=== PATIENT | male | born 1940 | race Caucasian/White ===

== ENCOUNTER 2018-01-22 00:42 | Inpatient (IN) | payer OTHER ==
[~2018-01-22] VITALS: Ht 180.3 cm; Wt 78.0 kg
[2018-01-22] VITALS (10 sets, daily range): BP systolic 129–182; BP diastolic 58–88
--- NOTE | ~2018-01-22 | EKG ---
[place] [address] [facility] [place] [address] ELECTROCARDIOGRAM REPORT Name: JEANNIE SUÁREZ Room #: 450-P ADM IN M.R.#: [id number] Admission: 01/22/18 Attend Phys: Bud No MD Discharge: Date of : 40 Report #: [id number] THIS REPORT FOR: //name// [facility] ED Test Date: 2018-01-22 Test Time: 00:47:48 Pat Name: JEANNIE SUÁREZ Department: Room: Gender: M Founder President And Ceo: YOJANA : 1940 Requested By: Michael Lau Order Number: [id number] MD: Nayan Ward Measurements Intervals [place] Rate: 59 P: 13 MN: 153 QRS: -32 QRSD: 95 T: 39 QT: 427 QTc: 423 Interpretive Statements Sinus rhythm Left axis deviation No previous ECG available for comparison Electronically Signed On 01-22-2018 17:05:54 CDT by Nayan Ward [email or web address] <ELECTRONICALLY SIGNED> By: Nayan Ward MD, [facility] 01/22/18 1705 0047 0047 Nayan Ward MD, FACC /EPI
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
--- NOTE | ~2018-01-22 | O ---
[facility] [place] [address] OPERATIVE REPORT Name: JEANNIE SUÁREZ Room #: 450-P [facility] IN M.R.#: [id number] Admission: 01/22/18 Attend Phys: Bud No MD Discharge: Date of : 40 Report #: [id number] THIS REPORT FOR: //name// CC: FAM unknown Bud No DATE OF SERVICE: 01/22/2018 PREOPERATIVE DIAGNOSIS: Right valgus impacted femoral neck fracture. POSTOPERATIVE DIAGNOSIS: Right valgus impacted femoral neck fracture. PROCEDURE: Percutaneous screw fixation, right femoral neck fracture. SURGEON: Montrell Francisco MD BROOM WORKER: Adore Carrizales PA-C INDICATION FOR BROOM WORKER: Throughout the case, extensive retraction and manipulation of the hip was required. This was afforded to me by my social human services assistants. ANESTHESIA: LMA. IMPLANTS: Synthes 7.0 partially threaded cannulated screws, size 100 mm, 95 mm and 90 mm in length. ESTIMATED BLOOD LOSS: 5 mL COMPLICATIONS: None. SPECIMENS: None. CONDITION UPON LEAVING THE OPERATING ROOM: Stable. INDICATIONS FOR PROCEDURE: The patient is a 77-year-old gentleman who fell at his nursing facility and sustained a valgus impacted right femoral neck fracture. After discussion with him and family, they elected for treatment with percutaneous screws. DESCRIPTION OF PROCEDURE: Risks, benefits, alternatives, complications were discussed in detail with the patient including, but not limited to risk of anesthesia, risk of damage to nerves, arteries, blood vessels, risk for infection, bleeding, risk for malunion, nonunion, need for reoperation. Informed consent was obtained from the patient. The right hip was appropriately marked in the preoperative holding area. IV Ancef was given for preoperative antibiotics. He was brought to the operating room and LMA anesthesia was [facility] [address] [place] [address] OPERATIVE REPORT Name: JEANNIE SUÁREZ Room #: 450-P ADM IN M.R.#: [id number] Admission: 01/22/18 Attend Phys: Bud No MD Discharge: Date of : 40 Report #: [id number] induced. He was transferred to the [place] table and right lower extremity was placed in traction, left lower extremity was scissored. Timeout was performed properly identifying the patient and procedure as well as the instrumentation and implants. All in the operating room were in agreement. Fluoroscopic imaging was brought in to verify adequate reduction of fracture and adequate images. The right hip was then prepped and draped in normal sterile fashion. A 2 cm incision over the lateral femur was made with 10 blade through the skin and fascia. Threaded tip guidewire was then placed for the posterior inferior screw. This was taken up into the femoral head under AP and lateral imaging. The Mariana gun guide was then used to place the superior anterior and superior posterior threaded guidewires. These were measured and found to be 100 for the most distal screw, 95 for the posterior superior screw and 90 for the anterior superior screw. The lateral cortex was drilled, the 3 screws were placed and tightened. Final fluoroscopic images were taken to verify adequate fracture reduction and placement of hardware. Wound was thoroughly irrigated with normal saline and closed with 2-0 Vicryl and skin yohana. Soft dressing of Adaptic, 4 x 4s, ABD, Medipore tape were applied. The patient tolerated this procedure well and went to recovery room under care of anesthesia postoperatively. By: [id number] Montrell Francisco MD /nt
[~2018-01-22 00:42] MED LIST: ASPIR 8181 MG PO; COLACE100 MG PO; FLOMAX0.4 MG PO; LASIX 20 MG TAB20 MG PO; LEVSIN0.125 MG PO; LIPITOR 20 MG T20 M1 PO; LISINOPRIL20 MG PO; LOPRESSOR50 PO; METFORMIN HCL500 MG PO; MIRALAX17 GM PO; NAMENDA XR28 MG PO; NYAMYC15 GM TOP; OXYCODONE HCL 55 MG PO; SENNA8.6 MG PO; TYLENOL EXTRA500 MG PO; VENTOLIN HFA 1818 GM INH; VITAMIN D3 COM1 EACH PO
[2018-01-22 01:16] LABS: URINE BILIRUBIN NEGATIVE (Negative); URINE BLOOD NEGATIVE (Negative); URINE CLARITY CLEAR; URINE COLOR YELLOW; URINE GLUCOSE-RANDOM* NEGATIVE (Negative); URINE KETONES NEGATIVE (Negative); URINE PROTEIN (DIPSTICK) NEGATIVE (Negative); URINE SPECIFIC GRAVITY 1.015 (1.005-1.035); URINE UROBILINOGEN 0.2 E.U./dl (0.2-1.0)
[2018-01-22 01:20] LABS: ABSOLUTE NEUTROPHILS 5.2 thou/uL (1.4-8.2); BASOPHILS 1.1 % (0.0-2.0); EOSINOPHILS 2.5 % (0.0-3.0); HEMATOCRIT 30.1 % (42.0-52.0); HEMOGLOBIN 10.2 gm/dL (14.0-18.0); LYMPHOCYTES 26.3 % (24.0-44.0); MCHC 33.8 g/dL (28.0-37.0); MCV 88.7 fL (80.0-100.0); PLATELET COUNT 214 thou/uL (150-400); POLYS 60.1 % (36.0-66.0); WBC 8.6 thou/uL (4.0-11.0)
[2018-01-22 01:23] LABS: URINE LEUKOCYTES-REFLEX 1+ (Negative); URINE NITRITE-REFLEX POSITIVE (Negative)
[2018-01-22 01:27] LABS: BACTERIA-REFLEX 1-9 Few /HPF (None Seen); CASTS None Seen /LPF (None Seen); CRYSTALS None Seen /LPF (None Seen); SQUAMOUS 0-3 Few /LPF (0-3); URINE RBC 0-2 Rare /HPF (0-2); URINE WBC-REFLEX 0-5 Rare /HPF (0-5)
[2018-01-22 01:29] LABS: CALCIUM 8.5 mg/dL (8.5-10.1); CREATININE 1.1 mg/dL (0.7-1.3)
[2018-01-22 01:35] LABS: TOTAL BILIRUBIN 0.2 mg/dL (<0.1-1.0); TOTAL PROTEIN 7.4 g/dL (6.4-8.2)
[2018-01-22 01:42] LABS: APTT 24.7 Seconds (24.5-32.8); INR 1.2; PROTIME 12.5 Seconds (9.3-11.4)
[2018-01-22] MEDS ORDERED: AMLODIPINE BESY10 MG PO (02:09)
[2018-01-22] MEDS ORDERED: VITAMIN E400 UNIT PO (02:11)
[2018-01-22] MEDS ORDERED: VITAMIN D3400 UNIT PO (02:12)
[2018-01-23 03:30] VITALS: BP 130/74
[2018-01-23 04:28] LABS: ALBUMIN 2.4 g/dL (3.4-5.0); CALCIUM 8.1 mg/dL (8.5-10.1); PHOSPHORUS 3.5 mg/dL (2.5-4.9); POTASSIUM 3.9 mmol/L (3.5-5.1)
[2018-01-23 05:26] LABS: HEMATOCRIT 27.4 % (42.0-52.0); HEMOGLOBIN 9.2 gm/dL (14.0-18.0); MCH 29.9 pg (26.0-34.0); MCHC 33.6 g/dL (28.0-37.0); MCV 89.2 fL (80.0-100.0); RBC 3.08 mil/uL (4.50-6.00); RDW 16.2 % (10.5-14.5); WBC 7.4 thou/uL (4.0-11.0)
[2018-01-23 07:55] VITALS: BP 146/68
[2018-01-23 16:16] VITALS: BP 136/47
[2018-01-23 19:39] VITALS: BP 139/60
[2018-01-24 04:10] VITALS: BP 122/61
[2018-01-24 05:53] LABS: HEMATOCRIT 26.5 % (42.0-52.0); MCH 29.9 pg (26.0-34.0); MCV 88.1 fL (80.0-100.0); RBC 3.01 mil/uL (4.50-6.00); RDW 16.7 % (10.5-14.5); WBC 7.3 thou/uL (4.0-11.0)
[2018-01-24 08:00] VITALS: BP 140/67
[2018-01-24 16:00] VITALS: BP 132/50
[2018-01-24 19:05] VITALS: BP 118/64
[2018-01-25 04:13] VITALS: BP 107/52
[2018-01-25 08:27] VITALS: BP 126/40
[2018-01-25] MEDS ORDERED: CEFUROXIME250 MG PO (09:45)
[2018-01-25] MEDS ORDERED: ENOXAPARIN40 MG/0.1 SUBQ (09:46)
[2018-01-25] MEDS ORDERED: HYDROCODON-ACE1 EAC7 PO (09:46)
[2018-01-25] MEDS ORDERED: NOVOLOG100 UNIT/1 SUBQ (09:46)
[2018-01-25 16:04] VITALS: BP 138/53
== END 2018-01-25 17:03 | DRG 481 ==
LOC: ER 00:42 → EROBS 01:42 → 4W 01:42
PROVIDERS: Emergency Medicine; Hospitalist
PROC: 0QH634Z Insertion of Internal Fixation Device into Right Upper Femur, Percutaneous Approach (ICD-10-PCS; principal; 2018-01-22)
DX: S72.001A Fracture of unspecified part of neck of right femur, initial encounter for closed fracture (principal); T83.511A Infection and inflammatory reaction due to indwelling urethral catheter, initial encounter; N39.0 Urinary tract infection, site not specified; E11.9 Type 2 diabetes mellitus without complications; I10 Essential (primary) hypertension; G89.29 Other chronic pain; F03.90 Unspecified dementia, unspecified severity, without behavioral disturbance, psychotic disturbance, mood disturbance, and anxiety; E78.5 Hyperlipidemia, unspecified; I35.0 Nonrheumatic aortic (valve) stenosis; Z87.891 Personal history of nicotine dependence; W18.39XA Other fall on same level, initial encounter; Y93.89 Activity, other specified; Y92.89 Other specified places as the place of occurrence of the external cause; Y99.8 Other external cause status
CPT/HCPCS: 10040; 50010; 50386; 51412; 51538; 53400; 56524; 57092

== ENCOUNTER 2019-05-09 09:43 | Inpatient (IN) | payer OTHER ==
[2019-05-09] VITALS (36 sets, daily range): BP systolic 76–147; BP diastolic 42–78
[~2019-05-09] VITALS: Ht 172 cm; Wt 78.3 kg
[~2019-05-09 09:43] MED LIST changes: +AMLODIPINE BESY10 MG PO; +CEFUROXIME250 MG PO; +ENOXAPARIN40 MG/0.1 SUBQ; +HYDROCODON-ACE1 EAC7 PO; +NOVOLOG100 UNIT/1 SUBQ; +VITAMIN D3400 UNIT PO; +VITAMIN E400 UNIT PO
[2019-05-09 10:06] LABS: HEMATOCRIT 30.6 % (42.0-52.0); HEMOGLOBIN 9.9 gm/dL (14.0-18.0); MCH 30.8 pg (26.0-34.0); MCHC 32.3 g/dL (28.0-37.0); MCV 95.4 fL (80.0-100.0); RBC 3.2 mil/uL (4.50-6.00); RDW 16.1 % (10.5-14.5); WBC 10.3 thou/uL (4.0-11.0)
[2019-05-09 10:29] LABS: ANION GAP 12 mmol/L (7-16); BUN 32 mg/dL (7-18); CHLORIDE 106 mmol/L (98-107); CO2 23 mmol/L (21-32); CREATININE 1.1 mg/dL (0.7-1.3); GLUCOSE 249 mg/dL (74-106); SODIUM 141 mmol/L (136-145)
[2019-05-09 10:32] LABS: POTASSIUM 3.8 mmol/L (3.5-5.1)
[2019-05-09 10:38] LABS: TROPONIN-I <0.06 ng/mL (<0.06)
[2019-05-09] MEDS ORDERED: PRINIVIL10 MG PO (11:06)
[2019-05-09] MEDS ORDERED: COMBIVENT INH (11:09)
[2019-05-09] MEDS ORDERED: PROVERA5 MG PO (11:10)
[2019-05-09] MEDS ORDERED: TRANSDERM-SCOP1 EACH TRANSDERM (11:14)
[2019-05-09] MEDS ORDERED: NOVOLOG100 UNIT/M SUBQ (11:16)
[2019-05-09 12:00] LABS: BE(vivo) -6.8 mmol/L (-2 to +3); HCO3 20.1 mmol/L (22.0-26.0); PCO2 46.7 mmHg (35.0-45.0); PO2 365.8 mmHg (80.0-100.0); sO2 99.7 % (92.0-98.0)
[2019-05-09 12:01] LABS: pH 7.251 (7.360-7.450)
[2019-05-09 12:06] LABS: URINE BILIRUBIN NEGATIVE (Negative); URINE BLOOD 2+ (Negative); URINE CLARITY CLEAR; URINE COLOR YELLOW; URINE GLUCOSE-RANDOM* NEGATIVE (Negative); URINE KETONES NEGATIVE (Negative); URINE PROTEIN (DIPSTICK) 2+ (Negative)
[2019-05-09 12:07] LABS: URINE LEUKOCYTES-REFLEX 3+ (Negative); URINE NITRITE-REFLEX POSITIVE (Negative)
[2019-05-09 12:18] LABS: BACTERIA-REFLEX >30 Many /HPF (None Seen); CASTS None Seen /LPF (None Seen); CRYSTALS None Seen /LPF (None Seen); SQUAMOUS 0-3 Few /LPF (0-3); URINE RBC 3-10 Few /HPF (0-2); URINE WBC-REFLEX >25 Many /HPF (0-5); WBC CLUMPS Few (None Seen)
[2019-05-09 12:21] LABS: APTT 28.9 Seconds (24.5-32.8); FIBRINOGEN 559.9 mg/dL (210-360); INR 1.7; PROTIME 17.4 Seconds (9.3-11.4)
--- NOTE | 2019-05-09 16:28 | EKG ---
[address] [address] ELECTROCARDIOGRAM REPORT Name: JEANNIE SUÁREZ Room #: 241-P ADM IN M.R.#: [id number] Admission: 05/09/19 Attend Phys: David Wyman MD Discharge: Date of : 40 Report #: [id number] THIS REPORT FOR: //name// [facility] ED Test Date: 2019-05-09 Test Time: 09:50:11 Pat Name: JEANNIE SUÁREZ Department: Room: 241 Gender: M Product Controller: ZARIA : 1940 Requested By: José Miguel Olivarez Order Number: [id number] MD: Leon Polanco Measurements Intervals [place] Rate: 103 P: 65 FL: 139 QRS: -10 QRSD: 97 T: 74 QT: 380 QTc: 498 Interpretive Statements Sinus tachycardia Atrial premature complex Borderline prolonged QT interval Compared to ECG 01/22/2018 00:47:48 Electronically Signed On 05-09-2019 16:27:56 CDT by Leon Polanco [email or web address] <ELECTRONICALLY SIGNED> By: Leon Polanco MD 05/09/19 1627 9 9 Leon Polanco MD /ADRIANNE
--- NOTE | 2019-05-09 17:14 | NUR ---
CM ASSESSMENT: CASE OPENED FOR DC PLANNING. CLINICAL INFO REVIEWED. PT ADMITTED THRU ER FORM [facility]. ASPIRATED AT BREAKFAST, REQUIRING CPR AT FACILITY. INTUBATED AND ON VENT. SEPSIS PROTOCOL AND ON LEVOPHED GTT. PT HAS FIELD [facility] PUBLIC CONDUCTOR/BRAKEMAN GUARDIAN, TATIROBERT RODRIGUES [phone] AND AFTER HOURS AT [phone]. SPOKE WITH MS RODRIGUES AND PROVIDED CLINCIAL UPDATE. SHE GIVE HER CONSENT TO TREAT AND REQUESTS CALL ANY TIME NIGHT OR DAY WITH SIGNIFICANT CHANGE OF CONDITION AND FOR CONSENT FOR ANY PROCEDURES. RN UPDATED. DC PLAN TO RETURN TO [facility] WHEN MEDICALLY STABLE. WILL HAVE DC TOP TILE DECORATOR FAX CLINICAL UPDATE TO [facility] IN AM. VALENCIA GUARDIAN GIVES CONSENT FOR PT'S SISTER ISABELLE MILLER TO CALL TO GET INFO ON PT.
--- NOTE | 2019-05-09 17:46 | NUR ---
CONSULTED TO PLACE A CENTRAL LINE FOR A PATIENT ADMITTING WITH ASPIRATION PNEUMONIA, HYPOTENSIVE. NO FAMILY AND LINE IS EMERGENT. MEDICAL NECESSITY SIGNED BY THE ER MD. ORDER NOTED. THE RIGHT JUGULAR VEIN WAS WIDLEY PATENT. A #6F TRIPLE LUMEN CENTRAL LINE WAS PLACED AFTER A BEDSIDE TIMEOUT. LINE PLACED PER HOSPITAL POLICY. LINE LENGTH 25CM AND ADVANCED TO 6CM EXTERNAL. A STAT CHEST XRAY WAS COMPLETED TO CONFIRM LINE IN CORRECT POSITION IN THE SVC. SANDRA NOTIFIED AND LINE RELEASED FOR USE
--- NOTE | 2019-05-09 19:16 | NUR ---
RECIEVED PATIENT FROM ER TO ROOM 241. INTUBATED AND ON LEVOPHED DRIP. OPENS EYES TO VOICE BUT DOES NOT FOLLOW COMMANDS. LIVES IN JAIL AND HAS A GUARDIAN. NO FAMILY AVAILABLE AT THIS TIME. CONTINUE LEVOPHED DRIP FOR BP AND PROPOFOL FOR SEDATION. FLUIDS INFUSING AT 150/HOUR.
[2019-05-09 19:56] LABS: BE(vivo) -6.4 mmol/L (-2 to +3); HCO3 19.6 mmol/L (22.0-26.0); PCO2 40.6 mmHg (35.0-45.0); PO2 87.7 mmHg (80.0-100.0); sO2 95.8 % (92.0-98.0)
[2019-05-09 19:57] LABS: pH 7.301 (7.360-7.450)
[2019-05-10] VITALS (67 sets, daily range): BP systolic 92–131; BP diastolic 48–78
[2019-05-10 04:38] LABS: ALBUMIN 1.7 g/dL (3.4-5.0); CALCIUM 8.2 mg/dL (8.5-10.1); CREATININE 0.9 mg/dL (0.7-1.3); POTASSIUM 4.2 mmol/L (3.5-5.1); TOTAL BILIRUBIN 0.4 mg/dL (<0.1-1.0)
[2019-05-10 05:13] LABS: HEMATOCRIT 26.2 % (42.0-52.0); HEMOGLOBIN 8.4 gm/dL (14.0-18.0); MCH 30.8 pg (26.0-34.0); MCHC 32.2 g/dL (28.0-37.0); MCV 95.5 fL (80.0-100.0); PLATELET COUNT 234 thou/uL (150-400); RBC 2.74 mil/uL (4.50-6.00); WBC 9.5 thou/uL (4.0-11.0)
[2019-05-10 05:34] LABS: BE(vivo) -6.4 mmol/L (-2 to +3); HCO3 19.5 mmol/L (22.0-26.0); PCO2 40.5 mmHg (35.0-45.0); PO2 122.9 mmHg (80.0-100.0); sO2 98.1 % (92.0-98.0)
[2019-05-10 05:35] LABS: pH 7.301 (7.360-7.450)
[2019-05-10 08:44] LABS: METAMYELOCYTES 9 %; MYELOCYTES 1 %; PLATELET ESTIMATE NORMAL
--- NOTE | 2019-05-10 10:20 | NUR ---
If extended npo status and enteral nutrition to start, recommend glucerna 1.2 at 30ml/hr and will evaluate final goal at follow up visit
--- NOTE | 2019-05-10 15:33 | NUR ---
ASSUMED CARE THIS AM. PATIENT INTUBATED AND SEDATED. LEVOPHED AT 6 MCG/MIN, PROPOFOL AT 25 MCG/KG/MIN, INSULIN DRIP AT 4 UNITS/HR. ACCUCHECKS EVERY HOUR. OPENS EYES BUT DOES NOT FOLLOW COMMANDS. SR WITH SHORT RUNS OF SVT, RATE 150'S - 170'S. DR. VILLEGAS NOTIFIED AND WANTS TO BE CALLED IF HE SUSTAINS. CHANGED ALBUTEROL TO XOPENEX WITH NO CHANGES . DR. BURKS NOTIFIED AND WILL GIVE ORDERS IF NEEDED. INSULIN DRIP ON HOLD FOR BS OF 53. ONE AMP D50 GIVEN.
--- NOTE | 2019-05-10 20:09 | HC ---
[facility] [place] [address] CONSULTATION Name: JEANNIE SUÁREZ Room #: 241-P ADM IN M.R.#: [id number] Admission: 05/09/19 Attend Phys: David Wyman MD Discharge: Date of : 40 Report #: [id number] THIS REPORT FOR: //name// CC: Srinivasa Wyman DATE OF SERVICE: 05/09/2019 INFECTIOUS DISEASE CONSULTATION REASON FOR CONSULTATION: Evaluation concerning septic shock. HISTORY OF PRESENT ILLNESS: The patient is a 78-year-old longterm resident, was eating breakfast when he choked on his oatmeal. Developed respiratory distress, required CPR. EMS suction oatmeal out of his airway. He was brought in emergently to [facility], now in the Intensive Care Unit. He received IV fluid resuscitation and is now on Levophed drip. Blood pressure dropped down into the 60s systolic. He has been tachycardic. He has maintained reasonable urine output. He is on a 50% FiO2, orally intubated. He is unresponsive and unable to give any further details. He does have diabetes and underlying dementia with confusion as his baseline. No witnessed falls. There was some report from the nursing staff that maybe he was not feeling well prior to this morning. This has not been confirmed. He has had temperature up to 99 degrees. He has had no rashes reported. There has been no diarrhea. He has had no further emesis noted. REVIEW OF SYSTEMS: Further review of systems is unable to be performed. He does have a right IJ catheter in place and is chronic suprapubic catheter. PAST MEDICAL HISTORY: Left femur fracture, status post ORIF, diabetes, hypertension, urinary retention with suprapubic catheter, aortic valve stenosis, dementia, hyperlipidemia, neck surgery and right hip pinning. ALLERGIES: None known. MEDICATIONS: Included aspirin, Lasix, Namenda, Colace, Glucophage, Ventolin inhaler, Lipitor, Flomax, Tylenol, Levsin, amlodipine, vitamin D, lisinopril, Combivent, Provera, scopolamine patch and insulin. FAMILY HISTORY: Noncontributory. SOCIAL HISTORY: Nonsmoker, no significant alcohol intake. PHYSICAL EXAMINATION: VITAL SIGNS: Temperature was 37.3, heart rate 91, blood pressure 108/62, on Levophed drip. He is on a 50% FiO2, orally intubated with a right IJ catheter [facility] [address] [place] [address] CONSULTATION Name: JEANNIE SUÁREZ Room #: 241-P [facility].#: [id number] Admission: 05/09/19 Attend Phys: David Wyman MD Discharge: Date of : 40 Report #: [id number] SKIN: Without decubitus or rash. No palpable adenopathy. HEENT: Eyes without scleral icterus. Mouth was edentulous. NECK: Supple. LUNGS: Coarse breath sounds throughout. HEART: Regular with a 2/6 systolic murmur heard at left sternal border. ABDOMEN: Soft, nontender. It did not appear tender. There are no appreciable masses or hepatosplenomegaly. Suprapubic catheter site was unremarkable with no drainage or erythema. GENITOURINARY: External genitalia without lesion. RECTAL: Not performed. EXTREMITIES: Without clubbing, cyanosis or edema. He was able to move all extremities. NEUROLOGIC: The patient was sedated and was unable to follow commands. Mood was depressed and sedate. LABORATORY STUDIES: Chest x-ray showed bilateral infiltrates. Urinalysis, pyuria and bacteriuria were present. Sodium 141, potassium 3.8, bicarbonate 23, creatinine 1.1. Hemoglobin 9.9, white count was 10, platelet count 267,000. Blood, urine and sputum cultures are pending. ABG on 50% FiO2 showed a pO2 of 87, pCO2 of 40, pH 7.3 with a lactate of 1.9. Procalcitonin of 12. IMPRESSION: 1. A 78-year-old longterm resident with aspiration pneumonia, respiratory failure and shock. 2. Catheter related urinary tract infection. 3. Septic shock due to #1 and #2. 4. Underlying dementia. 5. Diabetes. 6. Hypertension. 7. Aortic valve stenosis. 8. Urinary retention. RECOMMENDATIONS: We will continue broad antibiotic coverage for healthcare-associated infection, both from the lungs and from the urinary tract. Given that he is edentulous mouth, anaerobes will not be of concern. I do not get the sense that we are dealing with an intraabdominal infection other than the urinary tract. At this point, we will plan on continuing broad antibiotic coverage while awaiting culture results. [address] [address] CONSULTATION Name: JEANNIE SUÁREZ Room #: 241-P ADM IN M.Trell.#: [id number] Admission: 05/09/19 Attend Phys: David Wyman MD Discharge: Date of : 40 Report #: [id number] Continue fluid resuscitation and wean his vasopressors as tolerated. Serial chest x-ray and laboratory studies. Monitor vancomycin level. <ELECTRONICALLY SIGNED> By: Michael Martinez MD 05/10/192008 2216 1043 Michael Martinez MD /nt
[2019-05-11] VITALS (41 sets, daily range): BP systolic 93–130; BP diastolic 40–83
[2019-05-11 06:27] LABS: HEMATOCRIT 24.1 % (42.0-52.0); HEMOGLOBIN 7.8 gm/dL (14.0-18.0); MCH 30.9 pg (26.0-34.0); MCHC 32.4 g/dL (28.0-37.0); MCV 95.4 fL (80.0-100.0); PLATELET COUNT 206 thou/uL (150-400); RBC 2.52 mil/uL (4.50-6.00); RDW 15.9 % (10.5-14.5); WBC 8.6 thou/uL (4.0-11.0)
--- NOTE | 2019-05-11 07:00 | NUR ---
Pt rested comfortably through the night with VS stable and adequate SpO2 on current vent settings. PRN fentanyl given for breakthrough restlessness and grimacing with desired effect achieved. Urine output marginal for shift and no BM observed. Am lab results pending, continue with POC.
[2019-05-11 08:38] LABS: ABSOLUTE NEUTROPHILS 6.9 thou/uL (1.4-8.2)
[2019-05-11 12:43] LABS: ALBUMIN 1.6 g/dL (3.4-5.0); CALCIUM 8.8 mg/dL (8.5-10.1); CREATININE 0.6 mg/dL (0.7-1.3); POTASSIUM 4.2 mmol/L (3.5-5.1); TOTAL BILIRUBIN 0.4 mg/dL (<0.1-1.0); TOTAL PROTEIN 5.6 g/dL (6.4-8.2)
[2019-05-11 12:43] LABS: % SATURATION 23 % (20-39); IRON 22 ug/dL (65-175); TIBC 95 ug/dL (250-450)
[2019-05-11 13:10] LABS: FOLIC ACID 5.3 ng/mL (8.6-58.9)
--- NOTE | 2019-05-11 20:00 | NUR ---
PATIENT RESTING ON VENT TODAY, SEDATION VACATION FOR 50 MINUTES THIS EVENING, GRIMCING WHEN SUCTION, WILL NOT FOLLOW COMMANDS, WITHDRAWS TO PAINFUL STIMULI. ORAL/GASTRIC TUBE INSERTED, KUB DONE, RESULTS NOTED. LEVOPHED TAPPERED OFF MEAN ARTERIAL PRESSURE GREATER THAN 60 MMHG. PATIENT UPDATED TO THE PLAN OF CARE AND REASSURANCE GIVEN.
[2019-05-12] VITALS (29 sets, daily range): BP systolic 100–158; BP diastolic 49–82
--- NOTE | 2019-05-12 06:00 | NUR ---
REMAINS INTUBATED AND SEDATED WITH PROPOFOL GTT. FOLLOWS NO COMMANDS. BATHED. GOOD URINARY OUTPUT. SINUS RHYTHM. WILL CONT TO MONITOR.
[2019-05-12 06:18] LABS: HEMATOCRIT 24.6 % (42.0-52.0); HEMOGLOBIN 7.9 gm/dL (14.0-18.0); MCH 30.6 pg (26.0-34.0); MCHC 32.2 g/dL (28.0-37.0); MCV 94.9 fL (80.0-100.0); RBC 2.6 mil/uL (4.50-6.00); WBC 7.7 thou/uL (4.0-11.0)
[2019-05-12 06:22] LABS: CALCIUM 8.6 mg/dL (8.5-10.1); CREATININE 0.6 mg/dL (0.7-1.3); POTASSIUM 4.2 mmol/L (3.5-5.1)
[2019-05-13] VITALS (15 sets, daily range): BP systolic 123–149; BP diastolic 54–81
--- NOTE | 2019-05-13 06:00 | NUR ---
REMAINS INTUBATED AND SEDATED. PERIODS RESLESSNESS. FOLLOWS NO COMMANDS. 1000 CC UO THIS SHIFT. LUNGS REMAIN COARSE. SUCTIONED FOR A LARGE AMT THICK BEIGE SPUTUM. BATHED WILL CONT TO MONITOR CLOSELY.
[2019-05-13 06:47] LABS: HEMATOCRIT 24.1 % (42.0-52.0); HEMOGLOBIN 7.8 gm/dL (14.0-18.0); MCH 30.5 pg (26.0-34.0); MCHC 32.3 g/dL (28.0-37.0); MCV 94.4 fL (80.0-100.0); RBC 2.55 mil/uL (4.50-6.00); RDW 15.8 % (10.5-14.5); WBC 7.2 thou/uL (4.0-11.0)
[2019-05-13 07:09] LABS: CALCIUM 8.4 mg/dL (8.5-10.1); CREATININE 0.5 mg/dL (0.7-1.3); MAGNESIUM 1.9 mg/dL (1.8-2.4); POTASSIUM 3.8 mmol/L (3.5-5.1)
--- NOTE | 2019-05-13 08:05 | NUR ---
PT SUDDENLY WENT INTO SVT RATE 140 DR TOMAS NOTIFIED. LEFT ORDERS FOR LOPRESSOR 5 MG IV NOW KCL AND MG IV ALSD ORDERED WILL CONT TO MONITOR.
[2019-05-13 08:24] LABS: BE(vivo) -3.9 mmol/L (-2 to +3); HCO3 20.3 mmol/L (22.0-26.0); PCO2 33.7 mmHg (35.0-45.0); PO2 112.3 mmHg (80.0-100.0); pH 7.398 (7.360-7.450); sO2 98.1 % (92.0-98.0)
--- NOTE | 2019-05-13 13:46 | NUR ---
FAXED CLINICAL UPDATE TO [facility] RECEIVED CONFIRMATION AND SPOKE WITH ORIANA IN ADM. DP TO FOLLOW.
--- NOTE | 2019-05-13 14:27 | NUR ---
FOLLOWING FOR DC PLANNING. CLINICAL INFO REVIEWED. PT REMAINS ON VENT AND LOW DSOE PROPOFOL SEDATION, NOT FOLLOWING COMMANDS WHEN SEDATION LIGHTENED. UPDATE TO PA GUARDIAN OFFICE AND DC PLUG DRILL OPERATOR FAXED CLINICAL UPDATE TO [facility] ADMISSIONS.
--- NOTE | 2019-05-13 19:52 | NUR ---
PATIENT REMAINS UNRESPONSIVE ON THE VENT WITH SEDATION FOR COMFORT. PATIENT DOES OPEN HIS EYES AND TRACKS BUT DOES NOT FOLLOW ANY COMMANDS. BRAXTON HAD RUNS OF SVT THIS AM AND WAS STARTED ON METOPROLOL AND K+ AND MAG WAS REPLACED. NO ISSUES SINCE THEN. TUBE FEEDING STARTED ON THIS PATIENT AND HE IS TOLERATING IT WELL. NO FURHTER ISSUES AT THIS TIME. WILL CONTINUE TO MONITOR AND CARE PER PLAN OF CARE.
[2019-05-14] VITALS (23 sets, daily range): BP systolic 107–139; BP diastolic 47–66
[2019-05-14 04:52] LABS: CALCIUM 8.4 mg/dL (8.5-10.1); CREATININE 0.6 mg/dL (0.7-1.3)
[2019-05-14 05:37] LABS: HEMATOCRIT 24.3 % (42.0-52.0); HEMOGLOBIN 7.8 gm/dL (14.0-18.0); MCH 30.2 pg (26.0-34.0); MCHC 32.2 g/dL (28.0-37.0); MCV 93.8 fL (80.0-100.0); RBC 2.59 mil/uL (4.50-6.00); RDW 15.7 % (10.5-14.5); WBC 7.5 thou/uL (4.0-11.0)
[2019-05-14 12:00] LABS: BE(vivo) -2.9 mmol/L (-2 to +3); HCO3 20.3 mmol/L (22.0-26.0); PCO2 28.7 mmHg (35.0-45.0); PO2 115.2 mmHg (80.0-100.0); pH 7.467 (7.360-7.450); sO2 98.5 % (92.0-98.0)
--- NOTE | 2019-05-14 18:45 | NUR ---
patient remains on vent. cpap trial started at 1020 this am. Patient remains on cpap. Will open eyes, but not follow commands. vital signs stable. BM today. Tube feeding at goal rate, tolerating well. PPN discontinued. accuchecks, blood sugars not requiring insulin today. continue to follow plan of care.
[2019-05-15] VITALS (20 sets, daily range): BP systolic 102–141; BP diastolic 44–72
--- NOTE | 2019-05-15 04:21 | NUR ---
PATIENT COMPLETED CPAP TRIAL FROM 10AM-8PM, TOLERATED WELL. ON LIGHT SEDATION ABLE TO MOVE EXTREMITIES BUT UNABLE TO FOLLOW COMMANDS. BILATERAL HAND EDEMA DECREASED THROUGHOUT THE SHIFT. PATIENT TOLERATING TUBE FEEDING AT GOAL RATE 60ML/HR. NO SIGNS OF ACUTE DISTRESS NOTED AT THIS TIME. WILL CONTINUE TO MONITOR.
[2019-05-15 04:36] LABS: CALCIUM 8.8 mg/dL (8.5-10.1); CREATININE 0.6 mg/dL (0.7-1.3); POTASSIUM 4.4 mmol/L (3.5-5.1)
[2019-05-15 04:50] LABS: ABSOLUTE NEUTROPHILS 6.1 thou/uL (1.4-8.2); BASOPHILS 0.3 % (0.0-2.0); EOSINOPHILS 3.1 % (0.0-3.0); HEMATOCRIT 25.7 % (42.0-52.0); HEMOGLOBIN 8.3 gm/dL (14.0-18.0); MCH 30.1 pg (26.0-34.0); MCHC 32.4 g/dL (28.0-37.0); MCV 93.1 fL (80.0-100.0); PLATELET COUNT 225 thou/uL (150-400); POLYS 63.6 % (36.0-66.0); RBC 2.76 mil/uL (4.50-6.00); RDW 15.7 % (10.5-14.5); WBC 9.6 thou/uL (4.0-11.0)
--- NOTE | 2019-05-15 08:48 | NUR ---
UPON ASSESSEMENT, OGT FOUND TO BE TAPED AT 40CM, NOT ABLE TO HEAR ANY AIR WHEN AUSCULTATED. TUBEFEEDING KEPT ON HOLD FOR NOW DR. VILLEGAS ON THE UNIT NOTIFIED.
--- NOTE | 2019-05-15 13:26 | NUR ---
OGT ADVANCE BACK TO 60 AND KUB OBTAINED.
[2019-05-16] VITALS (23 sets, daily range): BP systolic 94–174; BP diastolic 46–79
--- NOTE | 2019-05-16 04:14 | NUR ---
ASSUMED CARE OF PATIENT AT 1900. VSS, AFEBRILE. OPENS EYES, DOES NOT FOLLOW COMMANDS ON SEDATION VACATION. TURNED Q2, BATH GIVEN. NO S/S OF DISTRESS. TOLERATING TUBE FEEDING. NO OTHER CONCERNS AT THIS TIME.
--- NOTE | 2019-05-16 10:21 | NUR ---
PATIENT ON CPAP TRIAL AT THIS TIME, TUBEFEEDING ON HOLD. PATIENT AWAKE AND ALERT BUT DOESN'T FOLLOW COMMANDS.
[2019-05-16 12:34] LABS: BE(vivo) 1.8 mmol/L (-2 to +3); HCO3 25.6 mmol/L (22.0-26.0); PCO2 36.5 mmHg (35.0-45.0); PO2 92.4 mmHg (80.0-100.0); pH 7.463 (7.360-7.450); sO2 97.5 % (92.0-98.0)
--- NOTE | 2019-05-16 12:59 | NUR ---
ABG RESULTS CALLED TO DR. VILLEGAS AND ORDERS RECEIVED TO EXTUBATE PATIENT. RT NOTIFIED.
--- NOTE | 2019-05-16 14:16 | NUR ---
FOLLOWING FOR DC PLANNING. CLINICAL INFO REVIEWED. DISCUSSED WITH DR. VILLEGAS THIS AM. DR. VILLEGAS INDICATES HE SPOKE WITH PT'S GUARDIAN JOANNE RODRIGUES ABOUT CONDITION AND GOALS OF CARE. CODE STATUS CHANGED TO DNR. PT MET CRITERIA FOR EXTUBATION TODAY AND CURRENTLY ON FACE SHIELD O2 WITH SATS IN HIGH 90'S. EYES OPEN BUT NOT FOLLOWING COMMANDS OR MOVING PURPOSEFULLY. RECEIVED VM FROM JERMAINE GASTELUM AT [facility] AND RETURNED CALL-LEFT VM WITH CM CONTACT AND REQUESTED DC CARBON FURNACE OPERATOR FAX UPDATED PULM PROGRESS NOTE TO ORIANA.
--- NOTE | 2019-05-16 14:32 | NUR ---
FAXED CLINICAL UPDATE TODAY'S PROG. NOTES FROM PULMONARY SPOKE WITH ORIANA IN ADM THEIR FAX MACHINE IS BEING WORKED ON RIGHT NOW AND DP TO FAX NOTES IN THE AM.
--- NOTE | 2019-05-16 15:33 | NUR ---
PATIENT STARTED TO DESATURATE. CALL PLACED TO DR VILLEGAS, ORDERS RECEIVED FOR RT TO NT SUCTION, RT NOTIFIED. EVON RT NT SUCTIONED PATIENT AND INCREASED THE FS FIO2 FROM 35 TO 50%, PATIENT'S SATS UP TO 94%.
--- NOTE | 2019-05-16 15:57 | NUR ---
PATIENT EXTUBATED BY RT RYANN AT [address] VILLEGAS'S ORDER.
[2019-05-17] VITALS (15 sets, daily range): BP systolic 112–177; BP diastolic 53–96
--- NOTE | 2019-05-17 04:57 | NUR ---
At approximately 0425, pt started showing ectopy, PAC's/PVC's, rates increased to the 160's-170's, then drop into the 60's, and he became hypertensive at 172/88. His respirations have also changed, they are now shallow, sats have been dropping, at one point into the low 70's, despite changing probe sites. He is also less responsive, previously, his eyes were open, and he was moving his head from side to side. He has copious oral secretions, RT has been NT suctioning, but that has become less effective. Sats currently are 83%, respirations are still shallow at 17, BP was rechecked and is 177/96, cuff placement was checked. Will continue to monitor
--- NOTE | 2019-05-17 10:14 | NUR ---
GRABIEL FOR DC PLANNING. CLINICAL INFO REVIEWED AND DISCUSSED WITH RN. PT EXTUBATED BUT REQUIRED INCREASING O2. UNRESPONSIVE, ON FACE SHILED 50%. POOR AIRWAY CLEARANCE. RN INDICATES DR. TAVERAS PLACED ON COMFORT CARE THIS AM. CALLED [facility] PA OFFICE, SPOKE WITH MALACHI MARTINI THE DEPUTY PA WITH CLINCIAL UPDATE AND PLAN FOR COMFORT CARE. MS MARTINI GIVES CONSENT FOR COMFORT CARE AND HOSPICE HOUSE EVAL IF PHYSICIANS FEEL APPROPRIATE. FAXED OUTSIDE DNR FORM TO PA OFFICE [phone] FOR SIGNATURE AND RETURN. PA GUARDIAN: JOANNE RODRIGUES: [phone] AFTER HOURS [phone] RN UPDATED.
--- NOTE | 2019-05-17 16:56 | NUR ---
PT ACCEPTED TO [facility] BUT NO BEDS TODAY. IF BED AVAILABLE TOMORROW, THERE IS A [facility] WITH PT RECORDS, FACESHEET, OUTSIDE HOSPITAL DNR FORM AND ON OUTSIDE OF ENVELOPE IS [facility] FORM COMPLETED BUT WILL NEED TO BE FAXED TO [facility] AND THEN [facility] WILL NEED TO BE CALLED TO SET UP TRANSPORT. REPORT Carson BARBOZA.O.Chrissy. AT [facility] AND PT'S PUBLIC ADMISNISTRATOR GUARDIAN UPDATED THIS AFTERNOON. IF [facility] HAS BED OVER WEEKEND AND PT APPROPRIATE FOR TRANSFER: NOTIFY GUARDIAN JOANNE RODRIGUES [phone] REPORT AT [facility] [phone]. [facility] FORM TO BE FAXED AND CALL TO SET UP TRANSPORT.
--- NOTE | 2019-05-17 17:01 | NUR ---
ASSESMENTS AND INTERVENTIONS DOCCUMENTED. DR. TAVERAS PAGED IN REGARDS TO PATIENT STATUS AND POSSIBLE ORDERS FOR COMFORT CARE. ORDERS RECIEVED. GUARDIAN NOTIFIED BY CASE MANAGEMENT AND IS AWARE OF PATIENT CHANGE OF STATUS. PATIENT GIVEN MORPHINE FOR AIR HUNGER AND SCOPOLAMINE PATCH FOR ORAL SECRETIONS. HOSPICE NURSE CAME BY TO SEE PATIENT BUT NO AVAILABLE BEDS. WILL CONTINUE TO FOLLOW COMFORT CARE ORDERS.
--- NOTE | 2019-05-18 05:34 | NUR ---
Pt continues to decline, pulse is irregular with rates in the 50's to 70's. His respiratory status is maintaining, sats range from mid 80's to mid 90's, rate is fairly consistent, from 10-16, his respirations are very shallow, no apnea at this time. His urine output has slowed through the course of the day. The morphine drip has decreased signs of air hunger, he is resing comfortably. HIs skin is pale and cool to the touch. Will continue to monitor
[2019-05-18 08:00] VITALS: BP 106/46
[2019-05-18 11:42] VITALS: BP 94/46
[2019-05-18 12:00] VITALS: BP 72/43
--- NOTE | 2019-05-18 14:44 | NUR ---
ASYSTOLE IN TWO LEADS, ABSENT HEART TONES AND RESPIRATIONS. PUPILS FIXED AND DIALATED. PT PRONOUNCED
--- NOTE | 2019-05-18 15:28 | NUR ---
1414 ASYSTOLE IN 2 LEADS, DR TAVERAS CALLED TO SEE IF RNS CAN PRONOUCE PT.
--- NOTE | 2019-05-18 15:29 | NUR ---
POST MORTEM CARE DONE. PT GOOD OF [place]. SHE STATES UNABLE TO GET OHOLD OF SISTER AND WE HAVE NO NUMBERS FOR SISTER. GOOD WILL CALL BACK WITH ARRANGMENTS
== END 2019-05-18 15:42 | DRG 870 ==
LOC: ER 09:43 → ICU 11:00 → EROBS 11:00 → ICU 15:25
PROVIDERS: Emergency Medicine; Hospitalist; Internal Medicine; Nurse Practitioner Acute Care; Pediatrics; ADMIT Internal Medicine
DX: A41.9 Sepsis, unspecified organism (principal); J96.01 Acute respiratory failure with hypoxia; R65.21 Severe sepsis with septic shock; E43 Unspecified severe protein-calorie malnutrition; J15.4 Pneumonia due to other streptococci; J69.0 Pneumonitis due to inhalation of food and vomit; T83.518A Infection and inflammatory reaction due to other urinary catheter, initial encounter; N39.0 Urinary tract infection, site not specified; G93.40 Encephalopathy, unspecified; I10 Essential (primary) hypertension; E11.9 Type 2 diabetes mellitus without complications; F03.90 Unspecified dementia, unspecified severity, without behavioral disturbance, psychotic disturbance, mood disturbance, and anxiety; E78.5 Hyperlipidemia, unspecified; Z87.440 Personal history of urinary (tract) infections; R33.9 Retention of urine, unspecified; I35.0 Nonrheumatic aortic (valve) stenosis; Y83.8 Other surgical procedures as the cause of abnormal reaction of the patient, or of later complication, without mention of misadventure at the time of the procedure; J44.9 Chronic obstructive pulmonary disease, unspecified; D64.9 Anemia, unspecified; D63.8 Anemia in other chronic diseases classified elsewhere; I46.9 Cardiac arrest, cause unspecified; Z87.01 Personal history of pneumonia (recurrent); Z79.82 Long term (current) use of aspirin; Z79.899 Other long term (current) drug therapy; Z79.84 Long term (current) use of oral hypoglycemic drugs; Z79.4 Long term (current) use of insulin; Y92.89 Other specified places as the place of occurrence of the external cause; Z87.891 Personal history of nicotine dependence; Z68.26 Body mass index [BMI] 26.0-26.9, adult; Z66 Do not resuscitate; Z51.5 Encounter for palliative care
CPT/HCPCS: 10078